=== PATIENT | female | born 1960 | race Caucasian/White ===

== ENCOUNTER 2016-11-13 09:03 | Emergency (ER) | payer OTHER ==
[~2016-11-13] VITALS: Ht 165.1 cm; Wt 47.0 kg
[~2016-11-13 09:03] MED LIST: ORPH100T PO; PRED20 PO; TRAM50 PO
[2016-11-13 09:05] VITALS: BP 135/81; PULSE 108; RESP 15; TEMP 98.2; O2SAT 99
--- NOTE | 2016-11-13 09:27 | PD ---
HPI Chief Complaint: Back/ Neck Pain or Injury Time Seen by Provider: 09:24 Travel History International Travel<30 days: No Contact w/Intl Traveler<30days: No Traveled to known affect area: No History of Present Illness HPI 56-year-old female presents the emergency department with acute on chronic lower back pain with sciatica into the left leg. She was last seen here for this in August 2015. At that time she was treated with Toradol, prednisone, and Norflex with Ultram with good improvement. Patient is attempting to get in with a local neurosurgeon, but is waiting on insurance clearance. She states no weakness, bowel problems, loss of sensation. Patient states it's flared up currently issues in the midst of moving. Pain is currently an 8 out of 10. She has no known drug allergies. PFSH Past Medical History ?: Not Social History Alcohol Use: Yes Tobacco Use: Yes Substance Use: No Allergies-Medications (Allergen,Severity, Reaction): Coded Allergies: No Known Allergies (Unverified , 08/29/15) Reported Meds & Prescriptions Reported Meds & Active Scripts Active Ultram (Tramadol HCl) 50 Mg Tab 50 Mg PO Q6H PRN FOR PAIN Norflex (Orphenadrine Citrate) 100 Mg Arturo 100 Mg PO BID Deltasone 20 Mg Tab (Prednisone) 20 Mg Tab 20 Mg PO DAILY Review of Systems General / Constitutional: No: Fever Eyes: No: Visual changes HENT: No: Headaches Cardiovascular: No: Chest Pain or Discomfort Respiratory: No: Shortness of Breath Gastrointestinal: No: Abdominal Pain Genitourinary: No: Dysuria Musculoskeletal: Positive: Arthralgias, Limited ROM, Pain Skin: No Rash Neurologic: No: Weakness Psychiatric: No: Depression Endocrine: No: Polydipsia Hematologic/Lymphatic: No: Easy Bruising Physical Exam Narrative GENERAL: Patient appears in mild to moderate distress. SKIN: Warm and dry. Normal color. Normal turgor. No rash. HEAD: Atraumatic. Normocephalic. EYES: Pupils equal and round. No scleral icterus. No injection or drainage. ENT: No nasal bleeding or discharge. Mucous membranes pink and moist. Pharynx is normal. Airway is patent. NECK: Trachea midline. Supple nontender CARDIOVASCULAR: Regular rate and rhythm. RESPIRATORY: No accessory muscle use. Clear to auscultation. Breath sounds equal bilaterally. MUSCULOSKELETAL: Extremities without clubbing, cyanosis, or edema. No obvious deformities. Patient has positive straight leg raise pain on the right at 40. No significant weakness is appreciated other than from discomfort. Patient has tenderness with palpation to the left lower back into the left sciatic notch. Patient is able to dorsiflex and plantar flex in both the without difficulty. NEUROLOGICAL: Awake and alert. No obvious cranial nerve deficits. Motor grossly within normal limits. Five out of 5 muscle strength in the arms and legs. Normal speech. PSYCHIATRIC: Appropriate mood and affect; insight and judgment normal. Data Data Last Documented VS Vital Signs Date Time Temp Pulse Resp B/P Pulse Ox O2 Delivery O2 Flow Rate FiO2 11/13/16 09:05 98.2 108 15 135/81 99 Orders Prednisone (Deltasone) (11/13/16 09:30) Ketorolac Inj (Toradol Inj) (11/13/16 09:30) [facility] Medical Decision Making Medical Screen Exam Complete: Yes Emergency Medical Condition: Yes Medical Record Reviewed: Yes Differential Diagnosis Acute on chronic low back pain. Sciatica. Lumbago. Narrative Course Patient is given Toradol 60 mg IM as well as 60 mg prednisone by mouth. Patient is continued on prednisone 40 mg twice a day 1 week. Patient is given Norflex 100 mg twice a day #20. Patient is given Lortab 5/325 one tab every 6 hours when necessary #12. Patient follow-up with her primary care physician or neurosurgeon as needed. Diagnosis Primary Impression: Sciatica associated with disorder of lumbosacral spine Referrals: Primary Care Physician Patient Instructions: General Instructions Departure Forms: Tests/Procedures Additional Instructions: Patient is given Toradol 60 mg IM as well as 60 mg prednisone by mouth. Patient is continued on prednisone 40 mg twice a day 1 week. Patient is given Norflex 100 mg twice a day #20. Patient is given Lortab 5/325 one tab every 6 hours when necessary #12. Patient follow-up with her primary care physician or neurosurgeon as needed. Med/Other Pt SpecificInfo: Prescription(s) given Scripts Hydrocodone-Acetaminophen (Lortab)5-325 Mg Tab1 Tab PO Q6H PRN (PAIN) #12 TAB Prov:Jose Simpson MD 11/13/16 Prednisone 20 Mg Tab20 Mg PO BID #14 TAB Prov:Jose Simpson MD 11/13/16 Orphenadrine ER 12 HR (Orphenadrine CR)100 Mg Gyd218 Mg PO Q12HR #20 TAB Prov:Jose Simpson MD 11/13/16 Disposition: 01 DISCHARGE HOME Condition: Stable Rufino Shelby Nov 13, 2016 09:27
[2016-11-13] MEDS ORDERED: predniSONE 20 MG TAB PO ONE (09:30)
[2016-11-13] MEDS ORDERED: KETOROLAC TROMETHAMINE 60 MG/2 ML (IM) VIAL IM ONE (09:30)
[2016-11-13] MEDS ORDERED: HYDR-3533 PO (09:48)
[2016-11-13] MEDS ORDERED: PRED20 PO (09:48)
[2016-11-13] MEDS ORDERED: ORPH100T99 PO (09:48)
== END 2016-11-13 10:11 | disposition home or self-care (01) ==
LOC: NEPK 09:03
DX: M54.40 Lumbago with sciatica, unspecified side (principal); Z72.0 Tobacco use
CPT/HCPCS: 96372; 99284; J1885; J7512

== ENCOUNTER 2017-05-19 13:30 | Emergency (ER) | payer SELFPAY ==
[~2017-05-19] VITALS: Ht 165.1 cm; Wt 50.0 kg
[~2017-05-19 13:30] MED LIST changes: +HYDR-3533 PO; +ORPH100T2 PO
[2017-05-19 13:32] VITALS: BP 125/82; PULSE 97; RESP 18; TEMP 98.3; O2SAT 96
[2017-05-19] MEDS ORDERED: PRED20 PO (16:10)
[2017-05-19] MEDS ORDERED: DICL75TA PO (16:10)
[2017-05-19] MEDS ORDERED: HYDR-3583 PO (16:10)
[2017-05-19] MEDS ORDERED: methylPREDNISolone SOD SUCC 125 MG/2 ML VIAL IM ONE (16:15)
[2017-05-19] MEDS ORDERED: KETOROLAC TROMETHAMINE 60 MG/2 ML (IM) VIAL IM ONE (16:15)
[2017-05-19] MEDS ORDERED: ACETAMINOPHEN/HYDROcodone 325 MG/10 MG TAB PO ONE (16:15)
--- NOTE | 2017-05-19 16:19 | PD ---
HPI Chief Complaint: Pain: Acute or Chronic Time Seen by Provider: 16:02 Travel History International Travel<30 days: No Contact w/Intl Traveler<30days: No Traveled to known affect area: No History of Present Illness HPI 56-year-old female that presents to the ED for evaluation of acute on chronic pain. Per patient she has a history of chronic pain on her left shoulder, hips bilaterally and sciatica. Per patient she follows with neurosurgeon who usually gives her injections. Per patient she was due for injections last month but partially she lost her job and she lost her insurance and she cannot get injections anymore. Per patient she gets cortisone shot injections initially worked very well for her. Usually she doesn't have to take any medications other than some Lortab on occasion. Per patient she thought she was going to be able to hold off until June when her new insurance kicks and she will be able to afford her joint injections but unfortunately the pain has become more significant the past couple of days. She's been taking over-the- counter remedies with minimal relief. She states that the pain currently is 8 out of 10 and mainly on the joint described above. No injuries or falls. Per patient feels like her same pain she had before. She denies any new symptoms from it. Per patient she knows that she needs to get injections but unfortunately she cannot afford them [id number]. She has no allergies to medication. Per patient pain is causing her discomfort to the point that she cannot work anymore and this is concerning for her asked that the only way she can get insurance. Has no allergies to medication. No other medical issues. [facility] Social History Alcohol Use: Yes Tobacco Use: Yes Substance Use: No Allergies-Medications (Allergen,Severity, Reaction): Coded Allergies: No Known Allergies (Unverified , 08/29/15) Reported Meds & Prescriptions Reported Meds & Active Scripts Active Diclofenac Sodium DR (Diclofenac Sodium) 75 Mg Tabdr 75 Mg PO BID PRN Hydrocodone-Acetamin 10-325 mg (Hydrocodone/Acetaminophen) 10 Mg-325 Mg Tablet 1 Mg PO Q6HR PRN Prednisone 20 Mg Tab 20 Mg PO BID Lortab (Hydrocodone-Acetaminophen) 5-325 Mg Tab 1 Tab PO Q6H PRN Orphenadrine CR (Orphenadrine Citrate) 100 Mg Tab 100 Mg PO Q12HR Ultram (Tramadol HCl) 50 Mg Tab 50 Mg PO Q6H PRN FOR PAIN Norflex (Orphenadrine Citrate) 100 Mg Arturo 100 Mg PO BID Deltasone 20 Mg Tab (Prednisone) 20 Mg Tab 20 Mg PO DAILY Review of Systems Except as stated in HPI: all other systems reviewed are Neg Physical Exam Narrative GENERAL: SKIN: Warm and dry. HEAD: Atraumatic. Normocephalic. EYES: Pupils equal and round. No scleral icterus. No injection or drainage. ENT: No nasal bleeding or discharge. Mucous membranes pink and moist. Tongue is midline. No uvula deviation. NECK: Trachea midline. No JVD. CARDIOVASCULAR: Regular rate and rhythm. RESPIRATORY: No accessory muscle use. Clear to auscultation. Breath sounds equal bilaterally. GASTROINTESTINAL: Abdomen soft, non-tender, nondistended. Hepatic and splenic margins not palpable. MUSCULOSKELETAL: Extremities without clubbing, cyanosis, or edema. No obvious deformities. Full range of motion of the upper and lower extremities bilaterally. Pain with range of motion of the left shoulder and both hips. Neurovascular intact. Motor is lumbar, thoracic, cervical spine tenderness to palpation. No signs of deformity. 2+ pulses bilaterally. NEUROLOGICAL: Awake and alert. No obvious cranial nerve deficits. Motor grossly within normal limits. Five out of 5 muscle strength in the arms and legs. Normal speech. PSYCHIATRIC: Appropriate mood and affect; insight and judgment normal. Data Data Last Documented VS Vital Signs Date Time Temp Pulse Resp B/P (MAP) Pulse Ox O2 Delivery O2 Flow Rate FiO2 05/19/17 13:32 98.3 97 18 125/82 (96) 96 Room Air Orders Orders Methylprednisolone So Succ Inj (Solumedr (05/19/17 16:15) Ketorolac Inj (Toradol Inj) (05/19/17 16:15) Acetamin-Hydrocod 325-10 Mg ([place] 10-32 (05/19/17 16:15) Ed Discharge Order (05/19/17 16:13) MDM Medical Decision Making Medical Screen Exam Complete: Yes Emergency Medical Condition: Yes Medical Record Reviewed: Yes Differential Diagnosis Acute on chronic pain versus chronic pain versus normal exam Narrative Course 56-year-old female that presents to the ED for evaluation of acute on chronic pain. Patient has a history of chronic pain and the most part does follow up with a neurologist who gives her injections to help with her symptoms. She's had this for years. Unfortunately the patient lost her insurance recently which caused her to come here to get help for pain relief. I evaluated the patient and do not see any sign of acute disease. She does appear to have acute on chronic pain. Likely from not getting her usual treatment. Patient was strongly encouraged to follow-up in June with her neurologist to get her injections as this will likely be the most beneficial for her. For now what I would recommend that she does get cortisone injections it's a trial of Solu- Medrol IM dose as well as Toradol and Lortab. Patient agrees with this plan. Patient given prescriptions for diclofenac sodium, prednisone as well as a short prescription for Lortab. Patient understands that the ER is not the place to get refills of her medications. She agrees and understands this plan. She was given this one refill this time for her Lortab. She understands reasons to come back. Follow-up with PCP. See ED worsening symptoms. Diagnosis Primary Impression: Polymyalgia Patient Instructions: General Instructions, Narcotic given in the ED Additional Instructions: Take medications as prescribed. Follow-up with PCP. See ED for any worsening symptoms. Do not drink or drive while taking pain medication. Apply ice or heat as needed for pain Med/Other Pt SpecificInfo: Prescription(s) given Scripts Diclofenac Sodium (Diclofenac Sodium DR) 75 Mg Tabdr 75 MG PO BID Y for PAIN SCALE 1 TO 10, #20 TAB 0 Refills Prov: Jose Simpson MD 05/19/17 Hydrocodone/Acetaminophen (Hydrocodone-Acetamin 10-325 mg) 10 Mg-325 Mg Tablet 1 MG PO Q6HR Y for PAIN SCALE 1 TO 10, #14 Prov: Jose Simpson MD 05/19/17 Prednisone (Prednisone) 20 Mg Tab 20 MG PO BID, #14 TAB Prov: Joes Simpson MD 05/19/17 Disposition: 01 DISCHARGE HOME Condition: Rene Gamboa May 19, 2017 16:19
== END 2017-05-19 16:57 | disposition home or self-care (01) ==
LOC: NEPK 13:30
DX: M35.3 Polymyalgia rheumatica (principal); G89.29 Other chronic pain
CPT/HCPCS: 96372; 99283; J1885; J2930

== ENCOUNTER 2017-08-03 12:02 | Emergency (ER) | payer SELFPAY ==
[~2017-08-03] VITALS: Ht 165.1 cm; Wt 52.0 kg
[~2017-08-03 12:02] MED LIST changes: +DICL75TA PO; +HYDR-3583 PO
[2017-08-03 12:04] VITALS: BP 158/72; PULSE 105; RESP 18; TEMP 98.4; O2SAT 100
[2017-08-03] MEDS ORDERED: CYMB30CA PO (12:44)
[2017-08-03] MEDS ORDERED: CYCL5TAB PO (12:44)
--- NOTE | 2017-08-03 13:36 | PD ---
HPI Chief Complaint: Back/ Neck Pain or Injury Time Seen by Provider: 13:22 Travel History International Travel<30 days: No Contact w/Intl Traveler<30days: No Traveled to known affect area: No History of Present Illness HPI 56-year-old female presents to the emergency department with complaint of chronic neck, back, sciatic pain since 2010. Presents today requesting refill on her pain medication, hydrocodone. Last took the medication in March 2017. She is to see pain management and received injections. She has had multiple outpatient imaging, including MRIs. She states her insurance does not allow for a doctor's visit until August. She has orthopedic follow-up for her left shoulder impingement syndrome after August 18. She has an appointment with pain management on August 18. Denies new or recent injury. Denies encopresis, incontinence, saddle anesthesias. Denies IV drug use or cancer. Denies fever, vomiting, abdominal pain, change in urine or stool. Rates pain 8/10. Worse with standing, sitting, walking. Better with pain meds, injections, rest. No known allergies. Dr. Toure his primary care provider. Denies other significant past medical history. Reports history of left shoulder impingement syndrome, herniated, bulging, degenerative disks in her C, L, T-spine; and left lower lumbar impingement. Has no other medical complaints. No other modifying factors or associated signs and symptoms. PFSH Past Medical History Musculoskeletal: Yes (CHRONIC BACK, HIP AND LEFT SHOULDER PAIN) Past Surgical History Surgical History: No Previous Surgery Social History Alcohol Use: Yes Tobacco Use: Yes Substance Use: No Allergies-Medications (Allergen,Severity, Reaction): Coded Allergies: No Known Allergies (Unverified Adverse Reaction, Unknown, 08/03/17) Reported Meds & Prescriptions Reported Meds & Active Scripts Active Medrol Dosepak (Methylprednisolone) 4 Mg Dspk 4 Mg PO DIRECTED Per Pharmacist direction Robaxin (Methocarbamol) 500 Mg Tab 500 Mg PO QID PRN Ibuprofen 800 Mg Tab 800 Mg PO Q6HR PRN Hydrocodone-Acetamin 10-325 mg (Hydrocodone/Acetaminophen) 10 Mg-325 Mg Tablet 1 Mg PO Q6HR PRN Reported Cymbalta DR (Duloxetine HCl) 30 Mg Capdr 30 Mg PO DAILY Flexeril (Cyclobenzaprine HCl) 5 Mg Tab 5 Mg PO TID Review of Systems Except as stated in HPI: all other systems reviewed are Neg Physical Exam Narrative GENERAL: Well-nourished, well-developed patient, in no acute distress ; afebrile, nontoxic-appearing SKIN: Warm and dry. HEAD: Atraumatic. Normocephalic. EYES: Pupils equal and round. No scleral icterus. No injection or drainage. ENT: Mucosa pink and moist. Airway patent. NECK: Moving freely. Trachea midline. Active rotation greater than 45 the left and right. No midline tenderness to palpation of the cervical spine. CARDIOVASCULAR: Regular rate. RESPIRATORY: No accessory muscle use. GASTROINTESTINAL: Flat. MUSCULOSKELETAL: Bilateral lower extremities supple and non-tense with 2+ pedal pulses and sensory intact; with full range of motion and 5/5 strength. 2 + DTRs bilaterally. Active dorsiflexion and extension of bilateral feet. Bilateral straight leg raise is positive for low back pain. Ambulatory in room with normal gait. Sitting up in bed at 90. No obvious deformities. No clubbing. No cyanosis. No edema. BACK: No midline point tenderness on palpation of the cervical, thoracic, lumbar spine. Tenderness on palpation of bilateral lumbar iliosacral area. No obvious deformities. NEUROLOGICAL: Awake and alert. Oriented 3. No obvious cranial nerve deficits. Motor grossly within normal limits. Normal speech. Moves all extremities. 5/5 strength to all extremities. Sensory intact. PSYCHIATRIC: Appropriate mood and affect; insight and judgment normal. Data Data Last Documented VS Vital Signs Date Time Temp Pulse Resp B/P (MAP) Pulse Ox O2 Delivery O2 Flow Rate FiO2 08/03/17 12:04 98.4 105 18 158/72 (100) 100 Orders Orders Ketorolac Inj (Toradol Inj) (08/03/17 13:45) Orphenadrine Inj (Norflex Inj) (08/03/17 13:45) Ed Discharge Order (08/03/17 13:44) [facility] Medical Decision Making Medical Screen Exam Complete: Yes Emergency Medical Condition: Yes Medical Record Reviewed: Yes Differential Diagnosis Medication refill, pain management, narcotic seeking Narrative Course 56-year-old female requesting refill on hydrocodone for chronic neck, back and sciatic pain. Denies IV drug use, cancer. Denies fevers, vomiting. Patient is afebrile nontoxic pain. Neuro exam is unremarkable. She is able to train the room with a normal gait. There is no reproducible midline tenderness on palpation of the cervical, thoracic, lumbar spine. Patient has follow-up with pain management on August 18 and orthopedics after August 18. Toradol, Norflex administered in the ER. Ibuprofen, Robaxin, Medrol Dosepak prescribed for home. Patient says that she has had her pain medication refilled here and I reviewed the records and she has had prescriptions for Lortab x2 and tramadol given in the past. He was discussed that this is not an appropriate medication refill for the emergency department and the patient needs to follow-up with her pain management doctor. Dr. Sanches evaluated the patient and agrees with my plan of care. Instructed patient to follow up with primary care provider. Patient verbalizes understanding and agreement with treatment plan. Patient is medically cleared and stable for discharge. Discussed reasons to return to the emergency department. Patient agrees with treatment plan. The patients vital signs are stable and the patient is stable for outpatient follow-up and treatment. Patient discharged home, stable and in no acute distress. Diagnosis Primary Impression: Chronic neck and back pain Referrals: [facility] Neurosurgeon Orthopaedic Surgeon Pain Management Primary Care Physician Patient Instructions: Chronic Back Pain (ED), Chronic Neck Pain (DC), General Instructions Additional Instructions: Tylenol or ibuprofen as directed and as needed for pain Robaxin as prescribed and as needed for muscle spasms Heating pad and/or ice to affected area to reduce pain Avoid aggravating activities; increase activity as tolerated Follow-up with primary care provider Follow-up with orthopedics Follow-up with pain management Follow-up with neurosurgeon Return to emergency department immediately with worsening of symptoms Med/Other Pt SpecificInfo: Prescription(s) given Scripts Methylprednisolone Dosepak (Medrol Dosepak) 4 Mg Dspk 4 MG PO DIRECTED, #1 DSPK 0 Refills Per Pharmacist direction Prov: Raquel Whitaker SENIOR EDITOR 08/03/17 Methocarbamol (Robaxin) 500 Mg Tab 500 MG PO QID Y for MUSCLE SPASM, #30 TAB 0 Refills Prov: Raquel Whitaker SENIOR EDITOR 08/03/17 Ibuprofen (Ibuprofen) 800 Mg Tab 800 MG PO Q6HR Y for PAIN, #30 TAB 0 Refills Prov: Raquel WhitakerP 08/03/17 Disposition: DISCHARGE HOME Condition: Stable Raquel WhitakerP Aug 03, 2017 13:36
[2017-08-03] MEDS ORDERED: IBUP1TAB7 PO (13:39)
[2017-08-03] MEDS ORDERED: ROBA500T PO (13:39)
[2017-08-03] MEDS ORDERED: MEDR4PAK PO (13:40)
[2017-08-03] MEDS ORDERED: KETOROLAC TROMETHAMINE 60 MG/2 ML (IM) VIAL IM ONE (13:45)
[2017-08-03] MEDS ORDERED: ORPHENADRINE INJ 60 MG/2 ML AMP IM ONE (13:45)
--- NOTE | 2017-08-03 14:15 | PD ---
Physical Exam Date Seen by Provider: Aug 03, 2017 Narrative This patient presents requesting refills for her chronic pain medications. Myself and Raquel Whitaker NP have explained to her that we do not refill chronic pain medications in the emergency department. The patient goes on to state that she has had her medicines refilled here before. We have reviewed her old records and she has, indeed, been prescribed refills of her narcotics here a few times in the past. She reports that she has been out of her medications for several weeks. Data Data Last Documented VS Vital Signs Date Time Temp Pulse Resp B/P (MAP) Pulse Ox O2 Delivery O2 Flow Rate FiO2 08/03/17 12:04 98.4 105 18 158/72 (100) 100 Orders Orders Ketorolac Inj (Toradol Inj) (08/03/17 13:45) Orphenadrine Inj (Norflex Inj) (08/03/17 13:45) Ed Discharge Order (08/03/17 13:44) MDM Supervised Visit with HIRO: Yes Narrative Course I, Dr. Sanches, have reviewed the advance practice practitioner's documentation and am in agreement, met with the patient face to face, made the diagnosis, and the medical decision making was done by me. *My assessment and Findings: The patient is lying on the stretcher. She appears pretty comfortable. Please see Raquel Whitaker NP's note for results of laboratory and radiographic evaluation, ED course, final diagnosis and disposition Diagnosis Primary Impression: Chronic neck and back pain Referrals: [facility] Neurosurgeon Orthopaedic Surgeon Pain Management Primary Care Physician Patient Instructions: General Instructions, Chronic Back Pain (ED), Chronic Neck Pain (DC) Additional Instruction: Tylenol or ibuprofen as directed and as needed for pain Robaxin as prescribed and as needed for muscle spasms Heating pad and/or ice to affected area to reduce pain Avoid aggravating activities; increase activity as tolerated Follow-up with primary care provider Follow-up with orthopedics Follow-up with pain management Follow-up with neurosurgeon Return to emergency department immediately with worsening of symptoms Scripts Methylprednisolone Dosepak (Medrol Dosepak) 4 Mg Dspk 4 MG PO DIRECTED, #1 DSPK 0 Refills Per Pharmacist direction Prov: Raquel Whitaker DONOR TECHNICIAN 08/03/17 Methocarbamol (Robaxin) 500 Mg Tab 500 MG PO QID Y for MUSCLE SPASM, #30 TAB 0 Refills Prov: Raquel Whitaker 08/03/17 Ibuprofen (Ibuprofen) 800 Mg Tab 800 MG PO Q6HR Y for PAIN, #30 TAB 0 Refills Prov: Raquel Whitaker 08/03/17 Disposition: 01 DISCHARGE HOME Condition: Stable Maggie Sanches MD Aug 03, 2017 14:15
== END 2017-08-03 15:24 | disposition home or self-care (01) ==
LOC: NEPD 12:02
DX: G89.29 Other chronic pain (principal); M54.2 Cervicalgia; M54.40 Lumbago with sciatica, unspecified side
CPT/HCPCS: 96372; 99283; J1885; J2360